=== PATIENT | female | born 1970 | race Caucasian/White ===

== ENCOUNTER 2019-09-04 09:00 | Outpatient (CLI) | payer BC | END 2019-09-04 09:01 | disposition home or self-care (01) | LOC: DTY/OP 09:00 | PROVIDERS: ATTEND Surgery | DX: E66.01 Morbid (severe) obesity due to excess calories (principal) | CPT/HCPCS: 97802 ==

== ENCOUNTER 2021-07-12 17:07 | Emergency (ER) | payer BC ==
[2021-07-12] MEDS ORDERED: Ondansetron PF 4 MG/2 ML Vial ONE (17:26)
[2021-07-12 18:06] LABS: #Basophils 0.1 thou/uL (0.0-0.2); #Eosinphils 0.2 thou/uL (0.0-0.7); #Lymphocytes 3.4 thou/uL (1.20-3.40); #Monocytes 0.5 thou/uL (0.11-0.59); #Neutrophils 5.5 thou/uL (1.40-6.50); %Basophils 0.9 % (0.0-1.0); %Eosinophils 2.5 % (0.0-10.0); %Lymphocytes 34.7 % (21.0-51.0); %Monocytes 5.3 % (0.0-10.0); %Neutrophils 56.6 % (42.0-75.0); Hemoglobin 17.7 g/dL (12.0-16.0); Mean Corpuscular HGB CONC 34.3 g/dL (32.0-36.0); Mean Corpuscular Hemoglobin 32.7 pg (27.0-31.0); Mean Corpuscular Volume 95.4 fL (78.0-98.0); Mean Platelet Volume 8.8 fL (7.4-10.4); Platelet Count 159 thou/uL (130-400); Red Blood Cell (RBC) Count 5.42 mill/uL (4.20-5.40); White Blood Cell (WBC) Count 9.7 thou/uL (4.8-10.8)
[2021-07-12 18:15] LABS: ALT (SGPT) 22 U/L (8-55); AST (SGOT) 19 U/L (5-34); Alkaline Phosphatase 79 U/L (40-110); Anion Gap 14 mmol/L (10-20); BUN (Urea Nitrogen) 21 mg/dL (9.8-20.1); Bilirubin, Total 0.6 mg/dL (0.2-1.2); Calc. Creatinine Clearance 0 mL/min (70-130); Calcium 9.6 mg/dL (7.8-10.44); Carbon Dioxide 21 mmol/L (22-29); Chloride 104 mmol/L (98-107); Globulin 2.5 g/dL (2.4-3.5); Glucose 134 mg/dL (70-105); Lipase 21 U/L (8-78); Potassium 3.4 mmol/L (3.5-5.1); Protein, Total 6.5 g/dL (6.0-8.3); Sodium 136 mmol/L (136-145)
[2021-07-12] MEDS ORDERED: Promethazine HCl 25 MG/ML VIAL ONE (19:04)
[2021-07-12 20:11] LABS: Bacteria/HPF 1+ HPF (None Seen); Bilirubin Negative (Negative); Blood, Urine Negative (Negative); Clarity Clear (Clear); Glucose, Urine (Dipstick) Normal (Negative); Ketone, Urine Trace mg/dL (Negative); Leukocyte 250 Leu/uL (Negative); Nitrite Negative (Negative); Pregnancy Test - Urine (BHCG) Negative (Negative); Pregu Control Background? CLEAR/WHITE (CLR/WHITE); Pregu Control Bar Appear? YES (CONTROL BAR); Protein, Urine (Dipstick) Negative (Neg-Trace); RBC/HPF 0-3 HPF (0-3); Renal Epithelial 0-3 HPF (None Seen); Specific Gravity 1.014 (1.002-1.036); Specific Gravity, Urine 1.014 (1.002-1.036); Urobilinogen Normal mg/dL (Less than 2)
[2021-07-12 21:05] LABS: Lactic Acid 1.3 mmol/L (0.5-2.2)
== END 2021-07-12 20:53 | disposition home or self-care (01) ==
LOC: ERS 17:07
DX: N30.00 Acute cystitis without hematuria (principal); I10 Essential (primary) hypertension
CPT/HCPCS: 36415; 70450; 80053; 81003; 81015; 81025; 83605; 83690; 84146; 84443; 84484; 85025; 85379; 94760; 96374; 96375; J2405; J2550

== ENCOUNTER 2021-07-28 13:24 | Outpatient (CLI) | payer BC ==
[~2021-07-28 13:24] MED LIST: Magnevist 469MG/ML 20 ML VIAL ONE
== END 2021-07-28 13:25 | disposition home or self-care (01) ==
LOC: TBSIIMAG 13:24
PROVIDERS: ATTEND Psychiatry & Neurology Neurology
DX: R56.9 Unspecified convulsions (principal)
CPT/HCPCS: 70553

== ENCOUNTER 2022-05-13 14:25 | Outpatient (CLI) | payer BC | END 2022-05-13 14:26 | disposition home or self-care (01) | LOC: SCSMRI 14:25 | PROVIDERS: ATTEND Family Medicine | DX: G93.89 Other specified disorders of brain (principal); D32.0 Benign neoplasm of cerebral meninges | CPT/HCPCS: 70553; 82565 ==

== ENCOUNTER 2023-09-02 16:07 | Outpatient (CLI) | payer BC | END 2023-09-02 16:08 | disposition home or self-care (01) | LOC: SCSRAD 16:07 | PROVIDERS: ATTEND Nurse Practitioner Family | DX: M25.562 Pain in left knee (principal); M25.552 Pain in left hip; M16.12 Unilateral primary osteoarthritis, left hip ==

== ENCOUNTER 2024-06-12 07:42 | Outpatient (CLI) | payer BC | END 2024-06-12 07:43 | disposition home or self-care (01) | LOC: SCSMRI 07:42 | PROVIDERS: ATTEND Family Medicine | DX: D32.9 Benign neoplasm of meninges, unspecified (principal); M25.562 Pain in left knee; S83.271A Complex tear of lateral meniscus, current injury, right knee, initial encounter; M25.461 Effusion, right knee | CPT/HCPCS: 70551 ==

== ENCOUNTER 2024-06-22 10:45 | Outpatient (CLI) | payer BC | END 2024-06-22 10:46 | disposition home or self-care (01) | LOC: SCSMRI 10:45 | PROVIDERS: ATTEND Family Medicine | DX: D32.0 Benign neoplasm of cerebral meninges (principal) | CPT/HCPCS: 70552; 76376 ==

== ENCOUNTER 2025-04-05 09:50 | Outpatient (CLI) | payer SELFPAY ==
[2025-04-05 11:35] LABS: #Basophils 0.03 10x3/uL (0.0-0.2); #Eosinophils 0.14 10x3/uL (0.0-0.7); #Monocytes 0.30 10x3/uL (0.11-0.59); #Neutrophils 3.67 10x3/uL (1.40-6.50); %Basophils 0.5 % (0.0-1.0); %Eosinophils 2.3 % (0.0-10.0); %Lymphocytes 32.8 % (21.0-51.0); %Monocytes 4.9 % (0.0-10.0); %Neutrophils 59.3 % (42.0-75.0); Hematocrit 40.9 % (36.0-47.0); Hemoglobin 13.4 g/dL (12.0-16.0); Mean Corpuscular Hemoglobin 30.5 pg (27.0-31.0); Mean Corpuscular Volume 93.2 fL (78.0-98.0); Platelet Count 225 10x3/uL (130-400); Red Blood Cell (RBC) Count 4.39 mill/uL (4.20-5.40); White Blood Cell (WBC) Count 6.18 10x3/uL (4.8-10.8)
[2025-04-05 11:51] LABS: INR-International Normal Ratio 1.0; Prothrombin Time 13.6 sec (12.0-14.7)
[2025-04-05 11:57] LABS: ALT (SGPT) 13 U/L (Less than 34); AST (SGOT) 21 U/L (11-34); Albumin 4.4 g/dL (3.1-4.5); Alkaline Phosphatase 73 U/L (40-110); Anion Gap 12 mmol/L (10-20); BUN (Urea Nitrogen) 11 mg/dL (9.8-20.1); Bilirubin, Total 0.4 mg/dL (0.3-1.2); Calc. Creatinine Clearance 0 mL/min (70-130); Calcium 9.7 mg/dL (7.8-10.44); Carbon Dioxide 28 mmol/L (22-29); Chloride 105 mmol/L (98-107); Globulin 2.6 g/dL (2.4-3.5); Glucose 82 mg/dL (70-105); Potassium 4.1 mmol/L (3.5-5.1); Sodium 141 mmol/L (136-145)
== END 2025-04-05 09:51 | disposition home or self-care (01) ==
LOC: LABBT 09:50
PROVIDERS: ATTEND Orthopaedic Surgery
DX: Z01.812 Encounter for preprocedural laboratory examination (principal); M17.12 Unilateral primary osteoarthritis, left knee
CPT/HCPCS: 80053; 85025; 85610; 87081

== ENCOUNTER 2025-04-05 10:34 | Outpatient (CLI) | payer SELFPAY | END 2025-04-05 10:35 | disposition home or self-care (01) | LOC: CT 10:34 | PROVIDERS: ATTEND Orthopaedic Surgery | DX: Z01.818 Encounter for other preprocedural examination (principal); M17.12 Unilateral primary osteoarthritis, left knee ==

== ENCOUNTER 2025-05-14 11:02 | Outpatient (CLI) | payer BC | END 2025-05-14 11:03 | disposition home or self-care (01) | LOC: SCSBT 11:02 | PROVIDERS: ATTEND Student in an Organized Health Care Education/Training Program | DX: Z13.820 Encounter for screening for osteoporosis (principal); Z78.0 Asymptomatic menopausal state; M85.851 Other specified disorders of bone density and structure, right thigh | CPT/HCPCS: 77080 ==